=== PATIENT | female | born 1980 | race Caucasian/White ===

== ENCOUNTER 2022-04-19 18:04 | Emergency (ER) | payer OTHER ==
[2022-04-19] MEDS ORDERED: predniSONE 20 MG TAB ONE (18:24)
[2022-04-19] MEDS ORDERED: Ipratropium/Albuterol 3 ML NEB ONE (18:24)
[2022-04-19] MEDS ORDERED: Ibuprofen 800 MG TAB ONE (18:24)
== END 2022-04-19 19:50 | disposition home or self-care (01) ==
LOC: ERS 18:04
DX: J22 Unspecified acute lower respiratory infection (principal); Z20.822 Contact with and (suspected) exposure to COVID-19
CPT/HCPCS: 71045; 87804; J7512; J7620; U0003; U0005

== ENCOUNTER 2022-12-21 19:24 | Emergency (ER) | payer OTHER ==
[2022-12-21] MEDS ORDERED: Magnesium 2 GM/50 ML BAG (IN WATER) ONE (20:02)
[2022-12-21] MEDS ORDERED: Dexamethasone 10 MG/ML VIAL ONE (20:02)
[2022-12-21] MEDS ORDERED: Ipratropium/Albuterol 3 ML NEB ONE (20:02)
[2022-12-21 21:29] LABS: SARS-CoV-2 NAA Rapid Test Not Detected (NotDetected)
== END 2022-12-21 22:14 | disposition home or self-care (01) ==
LOC: ERS 19:24
DX: R05.9 Cough, unspecified (principal); R06.2 Wheezing; Z20.822 Contact with and (suspected) exposure to COVID-19
CPT/HCPCS: 71045; 93005; 94640; 96365; 96375; J1100; J3475; J7611; J7620; U0002